=== PATIENT | female | born 1975 | race Caucasian/White ===

== ENCOUNTER 2024-01-05 18:43 | Emergency (ER) | payer BC ==
[~2024-01-05] VITALS: Ht 160 cm; Wt 63.5 kg
[2024-01-05] MEDS ORDERED: HYDR-3980 PO (19:13)
[2024-01-05] MEDS ORDERED: ONDA4TAB11 PO (19:13)
[2024-01-05] MEDS ORDERED: HYDROCODONE/APAP 10-325 MG TABLET ONE ×2 (19:15→21:12)
[2024-01-05] MEDS: HYDROCODONE/APAP 10-325 MG TABLET PO ONE ×2 (19:20→21:13)
[2024-01-05 21:29] VITALS: BP 130/66; TEMP 98.4; O2SAT 100
== END 2024-01-05 21:23 | disposition home or self-care (01) ==
LOC: ER 18:44
DX: S93.492A Sprain of other ligament of left ankle, initial encounter (principal); G43.909 Migraine, unspecified, not intractable, without status migrainosus; E03.9 Hypothyroidism, unspecified; Z79.891 Long term (current) use of opiate analgesic; Z79.899 Other long term (current) drug therapy; W18.39XA Other fall on same level, initial encounter; Y93.89 Activity, other specified; Y92.89 Other specified places as the place of occurrence of the external cause; Y99.8 Other external cause status
CPT/HCPCS: 73610; A4606; A4663

== ENCOUNTER 2025-03-31 12:00 | Inpatient (IN) | payer BC, OTHER ==
[~2025-03-31] VITALS: Ht 165.1 cm; Wt 63.5 kg
[~2025-03-31 12:00] MED LIST: HYDR-3980 PO; ONDA-243 PO
[2025-03-31] MEDS: IV NORMAL SALINE 1000 ML BAG IV ONE (13:15)
[2025-03-31] MEDS ORDERED: ESCI20TA44 PO (13:17)
[2025-03-31] MEDS ORDERED: LEVO137T2 PO (13:17)
[2025-03-31] MEDS ORDERED: SUMA100T16 PO (13:17)
[2025-03-31 13:26] LABS: PLATELET COUNT (AUTO) 279 K/uL (179-408); RED BLOOD CELL COUNT(AUTO) 2.85 MIL/uL (3.63-4.92); RED CELL DISTRIBUTION WIDTH 12.0 % (12.3-17.7); WHITE BLOOD COUNT (AUTO) 12.5 K/uL (3.8-11.8)
[2025-03-31] MEDS ORDERED: ONDANSETRON 4 MG/2 ML VIAL ONE (13:30)
[2025-03-31 13:32] LABS: *BILIRUBIN,URIN NEGATIVE (NEGATIVE); *BLOOD, URINE 1+ (NEGATIVE); *COLOR,URINE YELLOW (YELLOW); *KETONES,URINE TRACE (NEGATIVE); *PROTEIN,URINE NEGATIVE (NEGATIVE); *UROBILINOGEN,URINE 0.2 E.U./dl (NORMAL); LEUKOCYTE ESTERASE ,URINE NEGATIVE (NEGATIVE); NITRITE, URINE NEGATIVE (NEGATIVE); UGLUCOSE NEGATIVE (NEGATIVE)
[2025-03-31 13:34] LABS: *CLARITY,URINE SLIGHTLY HAZY (CLEAR); SQUAMOUS EPITHELIAL CELL,UR FEW /HPF (NONE SEEN)
[2025-03-31] MEDS: ONDANSETRON 4 MG/2 ML VIAL IV ONE (13:34)
[2025-03-31 13:38] LABS: CREATININE 0.7 mg/dL (0.6-1.3); SODIUM SERUM 143.0 mmol/L (136-145); UREA NITROGEN, BLOOD 32.0 mg/dL (7-18)
[2025-03-31 13:43] LABS: ASPARTATE AMINOTRANSFERASE 16.0 U/L (15-37); TOTAL PROTEIN, SERUM 6.6 g/dL (6.4-8.2)
[2025-03-31 14:10] LABS: IRON, SERUM 162 ug/dL (50-175)
[2025-03-31] MEDS: IV NS 1000 ML 1,000 ML IV ONE (14:15)
[2025-03-31] MEDS ORDERED: PANTOPRAZOLE SODIUM 40 MG VIAL ONE (14:40)
[2025-03-31 14:42] LABS: *OCCULT BLOOD STOOL POSITIVE (NEGATIVE)
[2025-03-31] MEDS ORDERED: LORAZEPAM 2 MG/1 ML VIAL ONE (14:42)
[2025-03-31] MEDS: CYANOCOBALAMIN 1000 MCG/ML VIAL IM ONE (14:45)
[2025-03-31] MEDS: LORAZEPAM 2 MG/1 ML VIAL IV ONE (14:50)
[2025-03-31] MEDS: PANTOPRAZOLE SODIUM 40 MG VIAL IV ONE (14:50)
[2025-03-31] MEDS ORDERED: SUMATRIPTAN SUCCINATE PO PRN (15:30)
[2025-03-31] MEDS ORDERED: ONDANSETRON 4 MG/2 ML VIAL IV PRN (15:30)
[2025-03-31] MEDS ORDERED: REMEDY ESSENTIAL ZINC PASTE 113 GM TP PRN (15:30)
[2025-03-31] MEDS ORDERED: MAGNESIUM HYDROXIDE 30 ML LIQUID UDC PO PRN (15:30)
[2025-03-31] MEDS ORDERED: CYAN-10 IM (15:42)
[2025-03-31] MEDS ORDERED: SYRI-29 MC (15:42)
[2025-03-31] MEDS ORDERED: CYANOCOBALAMIN 1000 MCG/ML VIAL ONE (16:09)
[2025-03-31 16:50] LABS: *URINE HCG, QUAL NEGATIVE (NEGATIVE)
[2025-03-31] MEDS ORDERED: SUMATRIPTAN SUCCINATE 6 MG/0.5 ML VIAL SQ ONE (17:10)
[2025-03-31] MEDS ORDERED: MAGNESIUM SULFATE/D5W 200 ML ONE (17:10)
[2025-03-31] MEDS: MAGNESIUM SULFATE/D5W 100 ML IV SCH (17:17)
[2025-03-31] MEDS: SUMATRIPTAN SUCCINATE 6 MG/0.5 ML VIAL SQ ONE (17:18)
[2025-03-31] MEDS ORDERED: IV NORMAL SALINE 250 ML IV ONE (17:45)
[2025-03-31] MEDS ORDERED: SWABABLE VALVE TRANSFER SET EA MC ONE (17:45)
[2025-03-31] MEDS ORDERED: IOHEXOL 300MG/ML 100 ML INFUS..BTL ONE (17:45)
[2025-03-31] MEDS ORDERED: HYDROMORPHONE 1 MG/1 ML DISP.SYRIN ONE (18:43)
[2025-03-31] MEDS: HYDROMORPHONE 1 MG/1 ML DISP.SYRIN IV ONE (19:01)
[2025-03-31 19:47] VITALS: BP 115/70; TEMP 98.5; O2SAT 100
[2025-03-31] MEDS ORDERED: BUTALB/ACETAMINOPHEN/CAFFEINE CAPSULE PO PRN (21:30)
[2025-03-31] MEDS: SUMATRIPTAN SUCCINATE 50 MG TABLET PO PRN (21:34)
[2025-03-31] MEDS: PANTOPRAZOLE SODIUM 40 MG VIAL IV SCH (21:34)
[2025-03-31] MEDS: CIPROFLOXACIN IV 400 MG in PREMIXED 1 EACH IV SCH (21:36)
[2025-03-31] MEDS: ALPRAZOLAM 0.5 MG TABLET PO ONE (23:09)
[2025-03-31] MEDS: METRONIDAZOLE 500 MG/NS 100ML 500 MG in PREMIXED 1 EACH IV SCH (23:09)
[2025-03-31] MEDS: IV D5 1/2 NS 1000 ML 1,000 ML IV PRN (23:55)
[2025-04-01] VITALS (18 sets, daily range): BP systolic 96–125; BP diastolic 49–69; TEMP 97.8–99.4; O2SAT 94–100
[2025-04-01] MEDS ORDERED: EPINEPHRINE 1:10,000 1 MG/10 ML DISP.SYRIN ONE (05:08)
[2025-04-01] MEDS: LEVOTHYROXINE SODIUM 137 MCG TABLET PO SCH (06:27)
[2025-04-01] MEDS: BUTALB/ACETAMINOPHEN/CAFFEINE CAPSULE PO PRN (06:27)
[2025-04-01] MEDS: ONDANSETRON 4 MG/2 ML VIAL IV PRN (06:42)
[2025-04-01 06:53] LABS: PLATELET COUNT (AUTO) 185 K/uL (179-408); RED CELL DISTRIBUTION WIDTH 11.8 % (12.3-17.7); WHITE BLOOD COUNT (AUTO) 8.1 K/uL (3.8-11.8)
[2025-04-01 07:09] LABS: CREATININE 0.6 mg/dL (0.6-1.3); SODIUM SERUM 144.0 mmol/L (136-145); UREA NITROGEN, BLOOD 12.0 mg/dL (7-18)
[2025-04-01 07:25] LABS: RED BLOOD CELL COUNT(AUTO) 2.01 MIL/uL (3.63-4.92)
[2025-04-01] MEDS: ACETAMINOPHEN 325 MG TABLET PO PRN (07:46)
[2025-04-01] MEDS: ESCITALOPRAM OXALATE 10 MG TABLET PO SCH (09:54)
[2025-04-01] MEDS ORDERED: POTASSIUM CHLORIDE 50 ML IV SCH (10:00)
[2025-04-01] MEDS: PANTOPRAZOLE SODIUM IV 80 MG in IV DEXTROSE 5% 500 ML IV SCH (10:54)
[2025-04-01] MEDS: POTASSIUM CHLORIDE 20 MEQ TAB.PRT.SR PO ONE (10:54)
[2025-04-01] MEDS ORDERED: [UNRECOGNIZED DRUG - CODE] PO (11:05)
[2025-04-01] MEDS ORDERED: ALBU18HF2 IH (11:06)
[2025-04-01 12:45] LABS: BASOPHILS % (MANUAL) 0 % (0-2); EOSINOPHILS % (MANUAL) 1 % (0-8); LYMPHOCYTES % (MANUAL) 21 % (20-40); MONOCYTES % (MANUAL) 3 % (2-10); NEUTROPHILS % (MANUAL) 75 % (42-75); PLATELET ESTIMATE ADEQUATE
[2025-04-01] MEDS ORDERED: PROPOFOL 200 MG/20 ML BOTTLE ONE (15:50)
[2025-04-01] MEDS: LORAZEPAM 1 MG TABLET PO PRN (20:24)
[2025-04-02] VITALS (7 sets, daily range): BP systolic 100–123; BP diastolic 59–70; TEMP 97.8–98.7; O2SAT 97–100
[2025-04-02] MEDS: CYANOCOBALAMIN 1000 MCG/ML VIAL IM SCH (08:38)
[2025-04-02] MEDS ORDERED: PANTOPRAZOLE SODIUM 40 MG VIAL IV SCH (16:00)
[2025-04-03 05:26] VITALS: BP 112/60; TEMP 97.9; O2SAT 98
[2025-04-03 07:23] LABS: PLATELET COUNT (AUTO) 164 K/uL (179-408); RED CELL DISTRIBUTION WIDTH 13.7 % (12.3-17.7); WHITE BLOOD COUNT (AUTO) 3.6 K/uL (3.8-11.8)
[2025-04-03 07:32] LABS: RED BLOOD CELL COUNT(AUTO) 2.47 MIL/uL (3.63-4.92)
[2025-04-03 07:41] VITALS: BP 125/63; TEMP 98.5; O2SAT 99
[2025-04-03 08:50] LABS: CREATININE 0.6 mg/dL (0.6-1.3); UREA NITROGEN, BLOOD 2.0 mg/dL (7-18)
[2025-04-03 08:58] LABS: SODIUM SERUM 143.0 mmol/L (136-145)
[2025-04-03] MEDS: POTASSIUM CHLORIDE 20 MEQ POWDER PACKET PO ONE (10:19)
[2025-04-03] MEDS: PANTOPRAZOLE SODIUM 40 MG VIAL IV SCH (11:45)
[2025-04-03 11:55] VITALS: BP 123/63; TEMP 98.3; O2SAT 99
[2025-04-03] MEDS: SUCRALFATE 1 G TABLET PO SCH (14:56)
[2025-04-03 16:01] VITALS: BP 123/64; TEMP 97.3; O2SAT 99
[2025-04-03] MEDS ORDERED: SUCR1TAB PO (19:09)
[2025-04-03] MEDS ORDERED: PANT40TA2 PO (19:09)
[2025-04-03 19:12] VITALS: BP 110/58; TEMP 98.4; O2SAT 99
== END 2025-04-03 22:50 | disposition home or self-care (01) | DRG 378 ==
LOC: ER 12:00 → TELE3 20:03
PROVIDERS: ADMIT Student in an Organized Health Care Education/Training Program; ATTEND Student in an Organized Health Care Education/Training Program
PROC: 3E0G8GC Introduction of Other Therapeutic Substance into Upper GI, Via Natural or Artificial Opening Endoscopic (ICD-10-PCS; 2025-04-01)
PROC: 30233N1 Transfusion of Nonautologous Red Blood Cells into Peripheral Vein, Percutaneous Approach (ICD-10-PCS; 2025-04-01)
PROC: 0DB68ZX Excision of Stomach, Via Natural or Artificial Opening Endoscopic, Diagnostic (ICD-10-PCS; principal; 2025-04-01 05:00)
DX: K25.4 Chronic or unspecified gastric ulcer with hemorrhage (principal); D62 Acute posthemorrhagic anemia; E83.51 Hypocalcemia; E06.3 Autoimmune thyroiditis; D18.03 Hemangioma of intra-abdominal structures; D25.9 Leiomyoma of uterus, unspecified; G43.909 Migraine, unspecified, not intractable, without status migrainosus; F41.9 Anxiety disorder, unspecified; K29.70 Gastritis, unspecified, without bleeding
CPT/HCPCS: 36415; 70030-TC; 83550; 83605; 83735; 84100; 84443; 84703; 85018; 85025; 85730; 86850; 86900; 86901; 86920; G0378; J0169; J0744; J1171; J2060; J2405; J2470; J3030; J3420; J3475; J3490; J7040; J7060; P9016; Q9967

== ENCOUNTER 2025-04-05 16:48 | Emergency (ER) | payer SELFPAY ==
[~2025-04-05] VITALS: Ht 160 cm; Wt 63.5 kg
[~2025-04-05 16:48] MED LIST changes: +ALBU18HF2 IH; +ESCI20TA44 PO; -HYDR-3980 PO; +LEVO137T2 PO; -ONDA-243 PO; +PANT40TA2 PO; +SUCR1TAB PO; +SUMA100T16 PO; +[UNRECOGNIZED DRUG - CODE] PO
[2025-04-05 16:58] VITALS: BP 125/75
[2025-04-05 17:50] LABS: PLATELET COUNT (AUTO) 222 K/uL (179-408); RED BLOOD CELL COUNT(AUTO) 2.89 MIL/uL (3.63-4.92); RED CELL DISTRIBUTION WIDTH 14.1 % (12.3-17.7); WHITE BLOOD COUNT (AUTO) 6.5 K/uL (3.8-11.8)
[2025-04-05 17:57] LABS: CREATININE 0.6 mg/dL (0.6-1.3); SODIUM SERUM 143 mmol/L (136-145); UREA NITROGEN, BLOOD 8 mg/dL (7-18)
[2025-04-05 18:04] LABS: ASPARTATE AMINOTRANSFERASE 15 U/L (15-37); TOTAL PROTEIN, SERUM 6.0 g/dL (6.4-8.2)
[2025-04-05 18:07] LABS: *OCCULT BLOOD STOOL POSITIVE (NEGATIVE)
[2025-04-05] MEDS ORDERED: diphenhydrAMINE 50 MG/1 ML VIAL ONE (18:07)
[2025-04-05] MEDS ORDERED: MORPHINE SULFATE 2 MG/1 ML DISP.SYRIN ONE (18:07)
[2025-04-05] MEDS ORDERED: METOCLOPRAMIDE HCL 10 MG/2 ML VIAL ONE (18:07)
[2025-04-05] MEDS ORDERED: BUTA1CAP46 PO (18:14)
[2025-04-05] MEDS ORDERED: METO-295 PO (18:14)
[2025-04-05] MEDS: diphenhydrAMINE 50 MG/1 ML VIAL IV ONE (18:20)
[2025-04-05] MEDS: MORPHINE SULFATE 2 MG/1 ML DISP.SYRIN IV ONE (18:21)
[2025-04-05] MEDS: IV NS 1000 ML 1,000 ML IV ONE (18:21)
[2025-04-05] MEDS: METOCLOPRAMIDE HCL 10 MG/2 ML VIAL IV ONE (18:21)
[2025-04-05] MEDS: IV NORMAL SALINE 1000 ML BAG IV ONE (18:37)
[2025-04-05 19:23] VITALS: BP 125/75; O2SAT 99
== END 2025-04-05 19:23 | disposition home or self-care (01) ==
LOC: ER 17:41
DX: G43.909 Migraine, unspecified, not intractable, without status migrainosus (principal); Z79.890 Hormone replacement therapy; Z87.11 Personal history of peptic ulcer disease; Z88.7 Allergy status to serum and vaccine; Z79.899 Other long term (current) drug therapy
CPT/HCPCS: 99284; 96374; 96375; 82270; 80076; 80048; 85025; 85730; 86850; 86900; 86901; 36415; J1200; J2765; J2270; J7040; A4606; A4663